=== PATIENT | female | born 1950 | race Caucasian/White ===

== ENCOUNTER 2020-07-27 07:23 | Outpatient (CLI) | payer OTHER ==
[~2020-07-27 07:23] MED LIST: CEPHULAC10 G/15 ML PO; HYOSCYAMINE0.125 M1 SL; PERCOCET 5/3251 TAB PO
== END 2020-07-27 07:32 | disposition home or self-care (01) ==
LOC: LAB 07:23
PROVIDERS: ATTEND Internal Medicine Hematology & Oncology
DX: D50.8 Other iron deficiency anemias (principal); R79.89 Other specified abnormal findings of blood chemistry; I10 Essential (primary) hypertension; R74.02 Elevation of levels of lactic acid dehydrogenase [LDH]; K76.89 Other specified diseases of liver; D51.1 Vitamin B12 deficiency anemia due to selective vitamin B12 malabsorption with proteinuria; D51.0 Vitamin B12 deficiency anemia due to intrinsic factor deficiency; E03.8 Other specified hypothyroidism; E06.3 Autoimmune thyroiditis; D47.2 Monoclonal gammopathy; C90.00 Multiple myeloma not having achieved remission; E11.9 Type 2 diabetes mellitus without complications; J45.998 Other asthma

== ENCOUNTER → 2021-01-01 07:27 | Outpatient (CLI) | payer OTHER ==
[~2021-01-01 07:27] MED LIST changes: +CRESTOR10 MG PO; +DICLOFENAC SODI50 MG PO; +FAMOTIDINE20 MG PO; +METFORMIN HCL500 M4 PO; +MONTELUKAST SOD10 MG PO; +SIMVASTATIN10 MG PO
== END | disposition home or self-care (01) ==
LOC: LAB 07:27
PROVIDERS: ATTEND Internal Medicine Hematology & Oncology
DX: I10 Essential (primary) hypertension (principal); D50.8 Other iron deficiency anemias; R79.9 Abnormal finding of blood chemistry, unspecified; R74.02 Elevation of levels of lactic acid dehydrogenase [LDH]; K76.89 Other specified diseases of liver; D51.8 Other vitamin B12 deficiency anemias; R97.0 Elevated carcinoembryonic antigen [CEA]; R97.8 Other abnormal tumor markers; C50.919 Malignant neoplasm of unspecified site of unspecified female breast; D47.2 Monoclonal gammopathy; E11.9 Type 2 diabetes mellitus without complications; J45.998 Other asthma; E11.40 Type 2 diabetes mellitus with diabetic neuropathy, unspecified

== ENCOUNTER 2021-01-02 08:59 | Emergency (ER) | payer OTHER ==
[~2021-01-02] VITALS: Ht 165.1 cm; Wt 71.2 kg
[~2021-01-02 08:59] MED LIST changes: -CRESTOR10 MG PO; -DICLOFENAC SODI50 MG PO; -FAMOTIDINE20 MG PO; -METFORMIN HCL500 M4 PO; -MONTELUKAST SOD10 MG PO; -SIMVASTATIN10 MG PO
[2021-01-02] MEDS ORDERED: SIMVASTATIN10 MG PO (09:11)
[2021-01-02] MEDS ORDERED: METFORMIN HCL500 M4 PO (09:11)
[2021-01-02] MEDS ORDERED: DICLOFENAC SODI50 MG PO (09:12)
[2021-01-02] MEDS ORDERED: MONTELUKAST SOD10 MG PO (09:12)
[2021-01-02] MEDS ORDERED: FAMOTIDINE20 MG PO (09:12)
[2021-01-02] MEDS ORDERED: CRESTOR10 MG PO (09:13)
== END 2021-01-02 14:39 | disposition home or self-care (01) ==
LOC: ER 08:59
DX: G44.89 Other headache syndrome (principal)

== ENCOUNTER 2021-05-31 08:17 | Outpatient (CLI) | payer OTHER ==
[~2021-05-31 08:17] MED LIST changes: +CRESTOR10 MG PO; +DICLOFENAC SODI50 MG PO; +FAMOTIDINE20 MG PO; +METFORMIN HCL500 M4 PO; +MONTELUKAST SOD10 MG PO; +SIMVASTATIN10 MG PO
== END 2021-05-31 08:18 | disposition home or self-care (01) ==
LOC: LAB 08:17
PROVIDERS: ATTEND Internal Medicine Hematology & Oncology
DX: J30.2 Other seasonal allergic rhinitis (principal); J30.89 Other allergic rhinitis; E11.22 Type 2 diabetes mellitus with diabetic chronic kidney disease; I70.0 Atherosclerosis of aorta; E78.2 Mixed hyperlipidemia; N39.0 Urinary tract infection, site not specified

== ENCOUNTER 2021-08-10 06:56 | Outpatient (CLI) | payer OTHER | END 2021-08-10 07:06 | disposition home or self-care (01) | LOC: LAB 06:56 | PROVIDERS: ATTEND Internal Medicine Hematology & Oncology | DX: D50.8 Other iron deficiency anemias (principal); R79.9 Abnormal finding of blood chemistry, unspecified; I10 Essential (primary) hypertension; R74.02 Elevation of levels of lactic acid dehydrogenase [LDH]; K76.89 Other specified diseases of liver; D51.8 Other vitamin B12 deficiency anemias; M32.9 Systemic lupus erythematosus, unspecified; M06.9 Rheumatoid arthritis, unspecified; M35.89 Other specified systemic involvement of connective tissue; M35.00 Sjogren syndrome, unspecified; K74.3 Primary biliary cirrhosis; D47.2 Monoclonal gammopathy; E11.9 Type 2 diabetes mellitus without complications; J45.998 Other asthma; B02.8 Zoster with other complications; M05.9 Rheumatoid arthritis with rheumatoid factor, unspecified; M34.81 Systemic sclerosis with lung involvement ==

== ENCOUNTER 2021-11-11 07:21 | Outpatient (CLI) | payer OTHER | END 2021-11-11 07:50 | disposition home or self-care (01) | LOC: LAB 07:21 | PROVIDERS: ATTEND Internal Medicine Hematology & Oncology | DX: D47.2 Monoclonal gammopathy (principal); J45.998 Other asthma; B02.8 Zoster with other complications; E11.22 Type 2 diabetes mellitus with diabetic chronic kidney disease; N39.0 Urinary tract infection, site not specified; N18.2 Chronic kidney disease, stage 2 (mild) ==

== ENCOUNTER 2022-06-18 08:02 | Outpatient (CLI) | payer OTHER | END 2022-06-18 08:04 | disposition home or self-care (01) | LOC: LAB 08:02 | PROVIDERS: ATTEND Internal Medicine Hematology & Oncology | DX: D50.8 Other iron deficiency anemias (principal); R79.9 Abnormal finding of blood chemistry, unspecified; I10 Essential (primary) hypertension; R74.02 Elevation of levels of lactic acid dehydrogenase [LDH]; K76.89 Other specified diseases of liver; D51.8 Other vitamin B12 deficiency anemias; D47.2 Monoclonal gammopathy; C90.00 Multiple myeloma not having achieved remission; E11.9 Type 2 diabetes mellitus without complications; J45.998 Other asthma; B02.8 Zoster with other complications ==

== ENCOUNTER 2023-03-09 07:13 | Outpatient (CLI) | payer OTHER ==
[2023-03-09 08:27] LABS: HEMATOCRIT 36.8 % (36.0-45.00); HEMOGLOBIN 12.4 g/dL (12.0-15.00); MEAN CELL VOLUME 88.6 fL (80.00-100.00); MEAN CORPUSCULAR HEMOGLOBIN 29.8 pg (27.00-32.0); MEAN CORPUSCULAR HGB CONC 33.7 g/dl (32.0-36.0); PLATELET COUNT 223 K/uL (150-450); RED BLOOD COUNT 4.15 M/uL (4.00-6.00); RED CELL DISTRIBUTION WIDTH 13.1 % (11.5-14.5)
[2023-03-09 09:03] LABS: % SATURACION 25.1 % (15-50); BILIRUBIN TOTAL 0.64 mg/dL (0.3-1.2); CALCIUM 9.5 mg/dL (8.5-10.1); CREATININE SERUM 1.03 mg/dL (0.55-1.02); FERRITIN 104.7 NG/ML (8-252); GFR 52.38; GLOBULINA 3.8 G/DL (2.4-3.5); POTASSIUM 4.2 mEq/L (3.5-5.1); TOTAL PROTEIN 7.8 gm/dL (6.4-8.2)
[2023-03-09 10:43] LABS: FOLIC ACID > 20.00 ng/ml (4.78-20)
[2023-03-09 14:01] LABS: MANUAL PLATELET COUNT 284
[2023-03-09 14:06] LABS: PLATELET ESTIMATE NORMAL (NORMAL)
[2023-03-10 14:07] LABS: kappa lambda r 2.11 (0.26-1.65); lambda light 16.1 mg/L (5.7-26.3)
[2023-03-11 10:07] LABS: IMM A 459 mg/dL (64-422); IMM G 1276 mg/dL (586-1602); IMM M 173 mg/dL (26-217); alpha 1 g 0.2 g/dL (0.0-0.4); alpha 2 0.9 g/dL (0.4-1.0); beta g 1.2 g/dL (0.7-1.3); gamma g 1.5 g/dL (0.4-1.8); globulin t 3.8 g/dL (2.2-3.9); m spike 0.2 g/dL (Not Observed); prot total 7.6 g/dL (6.0-8.5)
== END 2023-03-09 07:25 | disposition home or self-care (01) ==
LOC: LAB 07:13
PROVIDERS: ATTEND Internal Medicine Hematology & Oncology
DX: D50.8 Other iron deficiency anemias (principal); R79.9 Abnormal finding of blood chemistry, unspecified; I10 Essential (primary) hypertension; R74.02 Elevation of levels of lactic acid dehydrogenase [LDH]; K76.89 Other specified diseases of liver; D47.2 Monoclonal gammopathy; C90.00 Multiple myeloma not having achieved remission; E11.9 Type 2 diabetes mellitus without complications; J45.998 Other asthma; B02.8 Zoster with other complications

== ENCOUNTER 2023-10-23 08:23 | Outpatient (CLI) | payer OTHER ==
[2023-10-23 09:16] LABS: HEMATOCRIT 33.3 % (36.0-45.00); HEMOGLOBIN 11.3 g/dL (12.0-15.00); MEAN CELL VOLUME 88.3 fL (80.00-100.00); PLATELET COUNT 235 K/uL (150-450); RED BLOOD COUNT 3.78 M/uL (4.00-6.00); RED CELL DISTRIBUTION WIDTH 14.1 % (11.5-14.5)
[2023-10-23 09:47] LABS: % SATURACION 19.4 % (15-50); ALBUMIN 3.5 gm/dL (3.4-5.0); BILIRUBIN TOTAL 0.39 mg/dL (0.3-1.2); CALCIUM 8.8 mg/dL (8.5-10.1); CREATININE SERUM 0.87 mg/dL (0.55-1.02); FERRITIN 86.3 NG/ML (8-252); GFR 63.65; GLOBULINA 3.8 G/DL (2.4-3.5); POTASSIUM 4.57 mEq/L (3.5-5.1); TOTAL PROTEIN 7.3 gm/dL (6.4-8.2)
[2023-10-23 12:18] LABS: MANUAL PLATELET COUNT 712
[2023-10-23 12:22] LABS: PLATELET ESTIMATE INCREASED (NORMAL)
[2023-10-23 13:03] LABS: FOLIC ACID 13.07 ng/ml (4.78-20)
== END 2023-10-23 08:24 | disposition home or self-care (01) ==
LOC: LAB 08:23
PROVIDERS: ATTEND Internal Medicine Hematology & Oncology
DX: D47.2 Monoclonal gammopathy (principal); R76.8 Other specified abnormal immunological findings in serum; E11.9 Type 2 diabetes mellitus without complications; J45.998 Other asthma; B02.8 Zoster with other complications; D50.8 Other iron deficiency anemias; R79.9 Abnormal finding of blood chemistry, unspecified; I10 Essential (primary) hypertension; R74.02 Elevation of levels of lactic acid dehydrogenase [LDH]; K76.89 Other specified diseases of liver

== ENCOUNTER 2023-10-23 09:04 | Outpatient (CLI) | payer OTHER | END 2023-10-23 09:07 | disposition home or self-care (01) | LOC: MAMO-SONO 09:04 | PROVIDERS: ATTEND Internal Medicine Hematology & Oncology | DX: N63.0 Unspecified lump in unspecified breast (principal); N64.4 Mastodynia; D47.2 Monoclonal gammopathy; R76.8 Other specified abnormal immunological findings in serum; E11.9 Type 2 diabetes mellitus without complications; J45.998 Other asthma; B02.8 Zoster with other complications; Z12.31 Encounter for screening mammogram for malignant neoplasm of breast ==

== ENCOUNTER 2023-10-26 08:20 | Outpatient (CLI) | payer OTHER | END 2023-10-26 08:40 | disposition home or self-care (01) | LOC: MRI 08:20 | PROVIDERS: ATTEND Internal Medicine Hematology & Oncology | DX: D47.2 Monoclonal gammopathy (principal); R76.8 Other specified abnormal immunological findings in serum; E11.9 Type 2 diabetes mellitus without complications; J45.998 Other asthma; B02.8 Zoster with other complications | CPT/HCPCS: 72158; Q9965 ==

== ENCOUNTER 2023-11-21 12:40 | Outpatient (CLI) | payer OTHER | END 2023-11-21 12:46 | disposition home or self-care (01) | LOC: RAD 12:40 | PROVIDERS: ATTEND Internal Medicine Hematology & Oncology | DX: D50.8 Other iron deficiency anemias (principal); D47.2 Monoclonal gammopathy; R76.8 Other specified abnormal immunological findings in serum; E11.9 Type 2 diabetes mellitus without complications; J45.998 Other asthma; B02.8 Zoster with other complications; M51.06 Intervertebral disc disorders with myelopathy, lumbar region; M17.12 Unilateral primary osteoarthritis, left knee ==

== ENCOUNTER → 2024-06-24 07:37 | Outpatient (CLI) | payer OTHER ==
[2024-06-24 08:49] LABS: HEMOGLOBIN 11.5 g/dL (12.0-15.00); MEAN CELL VOLUME 91.3 fL (80.00-100.00); MEAN CORPUSCULAR HEMOGLOBIN 30.1 pg (27.00-32.0); PLATELET COUNT 244 K/uL (150-450); RED BLOOD COUNT 3.83 M/uL (4.00-6.00); RED CELL DISTRIBUTION WIDTH 13.7 % (11.5-14.5)
[2024-06-24 10:05] LABS: ALBUMIN 3.6 gm/dL (3.4-5.0); BILIRUBIN TOTAL 0.47 mg/dL (0.3-1.2); CALCIUM 8.9 mg/dL (8.5-10.1); CREATININE SERUM 0.81 mg/dL (0.55-1.02); FERRITIN 95.9 NG/ML (8-252); GFR 68.93; GLOBULINA 3.8 G/DL (2.4-3.5); POTASSIUM 4.39 mEq/L (3.5-5.1); TOTAL PROTEIN 7.4 gm/dL (6.4-8.2)
[2024-06-24 10:53] LABS: MANUAL PLATELET COUNT 254
[2024-06-24 10:54] LABS: PLATELET ESTIMATE NORMAL (NORMAL)
[2024-06-24 11:05] LABS: FOLIC ACID 18.07 ng/ml (4.78-20); VITAMIN D3 25 HYDROXY 41.87 ng/ml (30-120)
[2024-06-25 09:10] LABS: CA 125 11.7 U/mL (0.0-38.1); CA 15-3 16.7 U/mL (0.0-25.0)
== END | disposition home or self-care (01) ==
LOC: LAB 07:37
PROVIDERS: ATTEND Internal Medicine Hematology & Oncology
DX: D50.8 Other iron deficiency anemias (principal); D47.2 Monoclonal gammopathy; R76.8 Other specified abnormal immunological findings in serum; E11.9 Type 2 diabetes mellitus without complications; J45.998 Other asthma; B02.8 Zoster with other complications; M51.06 Intervertebral disc disorders with myelopathy, lumbar region; R79.9 Abnormal finding of blood chemistry, unspecified; R74.02 Elevation of levels of lactic acid dehydrogenase [LDH]; K76.89 Other specified diseases of liver; E55.9 Vitamin D deficiency, unspecified; C50.919 Malignant neoplasm of unspecified site of unspecified female breast; R97.8 Other abnormal tumor markers; R97.0 Elevated carcinoembryonic antigen [CEA]

== ENCOUNTER 2024-08-01 12:59 | Emergency (ER) | payer OTHER ==
[~2024-08-01] VITALS: Ht 157.5 cm; Wt 68.5 kg
[2024-08-01 13:20] VITALS: BP 148/85; O2SAT 99
[2024-08-01] MEDS ORDERED: METFORMIN HCL500 M3 (13:20)
[2024-08-01] MEDS ORDERED: COZAAR50 MG (13:20)
[2024-08-01] MEDS ORDERED: XOPENEX HFA15 GM (13:22)
[2024-08-01 15:50] LABS: BASO % 0.3 % (0.1-1.2); EOS # 0.07 (0.04-0.54); EOS % 0.7 % (0.7-7.0); HEMATOCRIT 34.9 % (34.1-44.9); HEMOGLOBIN 11.5 g/dL (11.2-15.7); LYMPH # 3.32 (1.18-3.74); LYMPH % 35.5 % (19.3-53.1); MEAN CORPUSCULAR HEMOGLOBIN 29.6 pg (25.6-32.2); MONO # 0.52 (0.24-0.82); MONO % 5.6 % (4.7-12.5); NEUT # 5.38 (1.56-6.13); NEUT % 57.5 % (34.0-71.1); PLATELET COUNT 237 K/uL (163-369); RED BLOOD COUNT 3.89 M/uL (3.93-5.22); RED CELL DISTRIBUTION WIDTH 12.9 % (11.6-14.4)
[2024-08-01 16:19] LABS: ALBUMIN 3.6 gm/dL (3.4-5.0); BILIRUBIN TOTAL 0.41 mg/dL (0.3-1.2); CALCIUM 8.7 mg/dL (8.5-10.1); CREATININE SERUM 0.88 mg/dL (0.55-1.02); GFR 62.64; GLOBULINA 3.9 G/DL (2.4-3.5); POTASSIUM 3.95 mEq/L (3.5-5.1); TOTAL PROTEIN 7.5 gm/dL (6.4-8.2)
[2024-08-01 16:28] LABS: PH,URINE 5.5 (5.0-8.0); URINE APPEARANCE Clear; URINE BILIRRUBIN Negative (NEGATIVE); URINE BLOOD Negative; URINE COLOR Yellow; URINE GLUCOSE Negative (NEGATIVE); URINE KETONE Negative (NEGATIVE); URINE LEUKOCYTE Small; URINE NITRATE Positive; URINE PROTEIN Negative (NEGATIVE); URINE UROBILINOGEN 0.2 E.U./dl
[2024-08-01 16:31] LABS: URINE EPITHELIAL CELLS 4.5 uL (0.0-38.8); URINE RBC 2.2 uL (0.0-20.8); URINE WBC 110.4 uL (0.0-23.2)
[2024-08-01 16:35] LABS: URINE BACTERIA > 9821.5 uL (0.0-1933)
[2024-08-01] MEDS ORDERED: MACROBID 100 M100 MG PO (17:15)
[2024-08-01] MEDS ORDERED: MOTION SICKNESS25 M1 PO (17:24)
== END 2024-08-01 18:17 | disposition home or self-care (01) ==
LOC: ER 12:59
PROVIDERS: General Practice
DX: S09.8XXA Other specified injuries of head, initial encounter (principal); W18.39XA Other fall on same level, initial encounter; Y93.89 Activity, other specified; Y92.018 Other place in single-family (private) house as the place of occurrence of the external cause; J45.909 Unspecified asthma, uncomplicated; E78.00 Pure hypercholesterolemia, unspecified; I10 Essential (primary) hypertension; Z98.890 Other specified postprocedural states; K57.32 Diverticulitis of large intestine without perforation or abscess without bleeding; N39.0 Urinary tract infection, site not specified; E11.9 Type 2 diabetes mellitus without complications; Z79.84 Long term (current) use of oral hypoglycemic drugs; M50.321 Other cervical disc degeneration at C4-C5 level

== ENCOUNTER 2024-12-09 06:42 | Outpatient (CLI) | payer OTHER ==
[~2024-12-09 06:42] MED LIST changes: +COZAAR50 MG; +MACROBID 100 M100 MG PO; +METFORMIN HCL500 M3; +MOTION SICKNESS25 M1 PO; +XOPENEX HFA15 GM
[2024-12-09 07:54] LABS: BASO % 0.5 % (0.1-1.2); EOS # 0.09 (0.04-0.54); EOS % 1.2 % (0.7-7.0); LYMPH # 2.79 (1.18-3.74); LYMPH % 36.4 % (19.3-53.1); MEAN PLATELET VOLUME 10.80 fl (9.4-12.4); MONO # 0.40 (0.24-0.82); MONO % 5.2 % (4.7-12.5); NEUT # 4.31 (1.56-6.13); NEUT % 56.3 % (34.0-71.1); RED CELL DISTRIBUTION WIDTH 13.2 % (11.6-14.4)
[2024-12-09 08:37] LABS: % SATURACION 27.8 % (15-50); ALT/SGPT 18.0 U/L (12-78); AST/SGOT 18.0 U/L (15-37); BILIRUBIN TOTAL 0.44 mg/dL (0.3-1.2); BUN CREA RATIO 23.0 (7.0-25.0); CREATININE SERUM 0.92 mg/dL (0.55-1.02); FE 80.0 ug/dl (50-170); GFR 59.35; GLOBULINA 3.3 G/DL (2.4-3.5); GLUCOSE FASTING 90.0 mg/dL (65-100); LDH 157.0 U/L (84-246); OSMOLALITY SERUM 286.0 MOSM/KG (275-295)
[2024-12-09 12:39] LABS: FOLIC ACID 19.25 ng/ml (4.78-20); VITAMIN D3 25 HYDROXY 62.33 ng/ml (30-120)
[2024-12-10 11:21] LABS: CA 125 13.1 U/mL (0.0-38.1); CA 15-3 17.6 U/mL (0.0-25.0)
== END 2024-12-09 06:48 | disposition home or self-care (01) ==
LOC: LAB 06:42
PROVIDERS: ATTEND Internal Medicine Hematology & Oncology
DX: D50.8 Other iron deficiency anemias (principal); D47.2 Monoclonal gammopathy; R76.8 Other specified abnormal immunological findings in serum; E11.9 Type 2 diabetes mellitus without complications; J45.998 Other asthma; B02.8 Zoster with other complications; M51.06 Intervertebral disc disorders with myelopathy, lumbar region; M17.12 Unilateral primary osteoarthritis, left knee; R79.9 Abnormal finding of blood chemistry, unspecified; I10 Essential (primary) hypertension; R74.02 Elevation of levels of lactic acid dehydrogenase [LDH]; K76.89 Other specified diseases of liver; C50.919 Malignant neoplasm of unspecified site of unspecified female breast; R97.0 Elevated carcinoembryonic antigen [CEA]